=== PATIENT | female | born 1970 | race African-American/Black ===

== ENCOUNTER → 2017-09-03 | Outpatient (CLI) | payer OTHER ==
[2017-09-03 14:48] LABS: ABSOLUTE EOSINOPHILS 0.2 thou/uL (0.0-0.7); ABSOLUTE LYMPHOCYTES 2.2 thou/uL (0.8-5.3); ABSOLUTE MONOCYTES 0.4 thou/uL (0.0-1.2); ABSOLUTE NEUTROPHILS 4.1 thou/uL (1.6-8.1); BASOPHILS 0.7 %; EOSINOPHILS 3.5 %; HEMATOCRIT 43.6 % (37.0-47.0); HEMOGLOBIN 14.5 gm/dL (12.0-15.0); MCH 28.7 pg (26.0-34.0); MCHC 33.1 g/dL (28.0-37.0); MCV 86.7 fL (80.0-100.0); MONOCYTES 5.6 %; MPV 9.7 fl. (7.2-11.1); NUCLEATED RBCS 0 /100WBC; PLATELET COUNT* 185 thou/uL (150-400); POLYS 58.2 %; RBC 5.03 mil/uL (4.20-5.00); RDW-CV 13.9 % (10.5-14.5)
[2017-09-03 15:04] LABS: ALBUMIN 4.3 g/dL (3.4-5.0); ALKALINE PHOSPHATASE 72 U/L (46-116); ANION GAP 9 mmol/L (7-16); BUN 11 mg/dL (7-18); CALCIUM 9.6 mg/dL (8.5-10.1); CHLORIDE 105 mmol/L (98-107); CHOLESTEROL 216 mg/dL (<200); CO2 27 mmol/L (21-32); GLUCOSE 80 mg/dL (70-99); HDL CHOLESTEROL 94 mg/dL (>40); LDL CHOLESTEROL 113 mg/dL (<100); MAGNESIUM 1.9 mg/dL (1.8-2.4); POTASSIUM 3.8 mmol/L (3.5-5.1); SERUM ASSESSMENT CLEAR; SGOT 24 U/L (15-37); SGPT 25 U/L (30-65); SODIUM 141 mmol/L (136-145); TC:HDL 2.3 Ratio (Not establshd); TOTAL BILIRUBIN 0.4 mg/dL (<0.1-1.0); TOTAL PROTEIN 8.5 g/dL (6.4-8.2); TRIGLYCERIDE 47 mg/dL (<150); VLDL 9 mg/dL (<40)
[2017-09-04 02:07] LABS: GLYCOHEMOGLOBIN (HGB A1C) 5.1 % (4.8-5.6)
== END ==
LOC: M.LAB 14:15
PROVIDERS: Internal Medicine
DX: F41.9 Anxiety disorder, unspecified (principal); F32.1 Major depressive disorder, single episode, moderate

== ENCOUNTER → 2019-06-15 | Outpatient (CLI) | payer OTHER | LOC: M.RAD 13:19 | DX: R07.89 Other chest pain (principal) ==

== ENCOUNTER → 2019-06-16 | Outpatient (CLI) | payer OTHER ==
--- NOTE | 2019-06-16 17:01 | CARDNUC ---
[place] [address] CARDIAC NUCLEAR IMAGING REPORT Name: ALAN DOUGLAS Room: [facility]#: [id number] Admission: 06/16/19 Attend Phys: Radu Crocker, Discharge: Date of : 68 Date of Service: 06/16/19 1700 Report #: [id number] THIS REPORT FOR: cc: Radu Crocker MD, David L. MD Liston, Michael J. MD [facility] ~ APPROVED REPORT Study performed: 06/16/2019 12:15:00 Indication: Chest pain Patient Location: Out-Patient Stress Tech: Eve Hdz Stress Nurse: Halima Fitzgerald RN Ht: 5 ft 3 in Wt: 165 lbs BSA: 1.78 m2 BMI: 29.22 Medical History Medications: no cardiac meds Allergies: tetracycline, levofloxacin, benadryl, flexeril Cardiac Risk Factors: FHX of CAD Exercise History: Physically active Resting Data Rest SPECT myocardial perfusion imaging was performed in supine position 30 minutes following the intravenous injection of 10.1 mCi of Tc-99m Sestamibi. Time of rest injection: 12:45 The images were gated to evaluate regional wall motion and calculate left ventricular ejection fraction. Administration Route: IV Administration Site: Left AC Exercise Stress At peak stress, the patient was injected intravenously with 29.5mCi of Tc-99m Sestamibi. Time of stress injection: 14:40 Administration Route: IV Administration Site: Left AC Heart Rate at time of stress injection: 158 bpm. Patient continued to exercise for 1 minute(s). Gated Stress SPECT was performed 45 minutes [place] [address] CARDIAC NUCLEAR IMAGING REPORT Name: ALAN DOUGLAS Room: [facility]#: [id number] Admission: 06/16/19 Attend Phys: Radu Crocker, Discharge: Date of : 68 Date of Service: 06/16/19 1700 Report #: [id number] The images were gated to evaluate regional wall motion and calculate left ventricular ejection fraction. Prone imaging was performed. Stress Test Details Stress Test: Exercise stress testing was performed using a Sudhakar protocol. HR Max Heart Rate (APMHR): 170 bpm Resting HR: 71 bpm Target HR (85% APMHR): 144 bpm Max HR Achieved: 160 bpm % of APMHR: 94 Recovery HR: 104 bpm BP Resting BP: 121/97 mmHg Max BP: 187/93 mmHg Recovery BP: 130/83 mmHg ECG Resting ECG: Sinus Rhythm Stress ECG: Sinus Tachycardia ST Change: None Arrhythmia: None Recovery ECG: Sinus Rhythm Recovery ST Change: Nondiagnostic resting ST abnormalities Recovery Arrhythmia: None Clinical Reason for Termination: Fatigue, Dyspnea Exercise duration: 9 min 19 sec Exercise capacity: 10.64 METs Overall Exercise Capacity for Age: Superior Functional Aerobic Impairment 94% The patient tolerated standard Sudhakar protocol exercise without cardiac symptoms. Stress ECG Conclusion The baseline 12-lead EKG shows sinus rhythm without significant ST segment or T wave abnormality. His obtained during stress show sinus tachycardia without significant ST segment depression. In recovery the patient had some nondiagnostic T-wave inversion in the inferolateral leads. There were no stress-induced arrhythmias. Study Quality Study: [place] [address] CARDIAC NUCLEAR IMAGING REPORT Name: GOPI DOUGLASSA KUMAR Room: [facility]#: [id number] Admission: 06/16/19 Attend Phys: Radu Crocker, Discharge: Date of : 68 Date of Service: 06/16/19 1700 Report #: [id number] Artifact: No artifact Study Data At rest, the left ventricular ejection fraction was 81%.. Post stress, the left ventricular ejection was 73%.. TID = 0.99. Perfusion Perfusion images obtained at rest and post exercise stress show uniform uptake of the radioisotope throughout the myocardium without defect. Wall Motion Normal left ventricular wall motion. Nuclear Conclusion ECG Findings: non-diagnostic Clinical Findings: negative for ischemia Nuclear Findings: negative for ischemia Exercise Capacity: normal Left Ventricular Function: normal Risk Study: low Myocardial perfusion images show no defect to suggest infarct or ischemia. Left ventricular systolic function is normal on gated studies. The late finding of T-wave inversion on recovery EKGs is nondiagnostic. This is a low risk study. <Conclusion> The baseline 12-lead EKG shows sinus rhythm without significant ST segment or T wave abnormality. His obtained during stress show sinus tachycardia without significant ST segment depression. In recovery the patient had some nondiagnostic T-wave inversion in the inferolateral leads. There were no stress-induced arrhythmias. <ELECTRONICALLY SIGNED> By: Rambo Mcdonald MD, FACC 06/16/191699 99 99 Rambo Mcdonald MD, FACC /INF
== END ==
LOC: M.NUC 06-15 12:29
PROVIDERS: ATTEND Internal Medicine
DX: R07.89 Other chest pain (principal); K22.70 Barrett's esophagus without dysplasia